=== PATIENT | female | born 1950 | race Caucasian/White ===

== ENCOUNTER 2016-12-09 11:07 | Emergency (ER) | payer MEDICARE ==
[~2016-12-09 11:07] MED LIST: AMARYL PO; AMLODIPINE BESY10 MG PO; ASPIRIN EC81 M1 PO; ASPIRIN81 M1 PO; ATORVASTATIN CA10 MG PO; DIABETA5 M1; FLEXERIL10 MG PO; GLUCOPHAGE500 M1 PO; HYDROCHLOROTHIA25 MG PO; JENTADUETO 2.51 EACH PO; LANTUS SOLOSTAR3 ML; LISINOPRIL20 MG PO; LOSARTAN POTASS25 MG PO; METOPROLOL SUCC25 MG PO; NOVOLOG100 U/M1 SQ; PRAVACHOL PO; PREDNISONE50 MG PO; TRIAMCINOLONE A15 G2; ULTRAM PO; VOLTAREN75 MG PO
[2016-12-09 11:12] LABS: URINE APPEARANCE CLOUDY; URINE BILIRUBIN NEG (NEG); URINE BLOOD TRACE-INTACT (NEG); URINE COLOR YELLOW; URINE GLUCOSE NEG (NORM); URINE KETONE NEG (NEG); URINE LEUKOCYTE ESTERASE 2+ (NEG); URINE NITRATE NEG (NEG); URINE PH 5.5 (5-8); URINE PROTEIN TRACE (NEG); URINE UROBILINOGEN 0.2 MG/DL (NORM)
[2016-12-09 11:13] LABS: MICRO INDICATED? YES; URINE SOURCE CLEAN CATCH
[2016-12-09 11:15] LABS: BASOPHIL% 0.2 % (0-2.5); EOSINOPHIL# 0.3 X10e3 (0-0.7); EOSINOPHIL% 3.2 % (0.0-7.0); HEMATOCRIT 41.3 % (35.0-45.0); HEMOGLOBIN 13.9 gm/dL (12.0-16.0); LYMPHOCYTE# 2.1 X10e3 (1.0-3.5); LYMPHOCYTE% 25.9 % (17.0-45.0); MEAN CELL VOLUME 89.9 FL (83-96); MEAN CORPUSCULAR HEMOGLOBIN 30.2 PG (28-34); MEAN CORPUSCULAR HGB CONC 33.6 g/dL (30-36); MEAN PLATELET VOLUME 8.6 FL (6.5-11.5); MONOCYTE# 0.8 X10e3 (0-1.0); MONOCYTE% 10.2 % (3.0-12.0); NEUTROPHIL% 60.5 % (40-75); PLATELET COUNT 300 X10e3 (140-420); RED BLOOD COUNT 4.59 X10e (3.90-5.30); RED CELL DISTRIBUTION WIDTH 13.3 % (11.0-15.5); WHITE BLOOD COUNT 8.3 X10e3 (4.0-10.5)
[2016-12-09 11:18] LABS: CULTURE INDICATED? YES; URINE BACTERIA 4+ (NEG); URINE RBC 25-50 /[HPF] (0-2); URINE SQUAMOUS EPITHELIAL CELL MODERATE /[HPF]; URINE WBC INNUM /[HPF] (0-5)
[2016-12-09 11:19] LABS: DIFF IND NO
[2016-12-09 11:34] LABS: BUN/CREATININE RATIO 17.5; CALCIUM SERUM 9.8 mg/dL (8.4-10.2); CREATININE SERUM 1.6 mg/dL (0.6-1.4); POTASSIUM 5.3 mmol/L (3.5-5.1)
== END 2016-12-09 13:18 | disposition home or self-care (01) ==
LOC: SED 11:07
PROVIDERS: Emergency Medicine
DX: N28.9 Disorder of kidney and ureter, unspecified (principal); N39.0 Urinary tract infection, site not specified; E78.5 Hyperlipidemia, unspecified; E11.40 Type 2 diabetes mellitus with diabetic neuropathy, unspecified; Z79.4 Long term (current) use of insulin; Z90.710 Acquired absence of both cervix and uterus; Z87.891 Personal history of nicotine dependence
CPT/HCPCS: 80048; 81003; 82947; 85025; 87086; 87088; 87186; 96361; 96374; 96375; 99284